=== PATIENT | female | born 1930 | race African-American/Black ===

== ENCOUNTER 2016-10-05 11:36 | Emergency (ER) | payer MEDICARE, MEDICAID ==
[2016-10-05] MEDS ORDERED: predniSONE 20 MG TAB ONE (12:14)
--- NOTE | 2016-10-05 16:13 | RAD ---
PORTABLE CHEST 10/05/16 An AP portable film at 1211 is compared with a 07/30/15 study. The heart is moderately enlarged as before. Arteriosclerotic change is seen in the aorta. There is p rominence of the vasculature suggesting mild congestive change. It is difficult to see the left lung base well in this patient. IMPRESSION: Mild congestive change. POS: HOME
== END 2016-10-05 12:55 | disposition home or self-care (01) ==
LOC: BURERS 11:36
DX: J06.9 Acute upper respiratory infection, unspecified (principal); I11.0 Hypertensive heart disease with heart failure; I50.9 Heart failure, unspecified; M19.90 Unspecified osteoarthritis, unspecified site; E11.9 Type 2 diabetes mellitus without complications; E78.00 Pure hypercholesterolemia, unspecified; E03.9 Hypothyroidism, unspecified; F03.90 Unspecified dementia, unspecified severity, without behavioral disturbance, psychotic disturbance, mood disturbance, and anxiety; J44.9 Chronic obstructive pulmonary disease, unspecified; E66.9 Obesity, unspecified; Z86.718 Personal history of other venous thrombosis and embolism; Z79.01 Long term (current) use of anticoagulants; Z79.899 Other long term (current) drug therapy; Z79.4 Long term (current) use of insulin
CPT/HCPCS: 71010; 93005; J7506; J7620

== ENCOUNTER 2017-09-17 19:23 | Observation (INO) | payer MEDICAID, MEDICARE ==
[2017-09-17 19:42] LABS: Hemoglobin 12.4 g/dL (12.0-16.0); Mean Corpuscular HGB CONC 34.3 g/dL (32.0-36.0); Mean Corpuscular Hemoglobin 28.8 pg (27.0-31.0); Mean Corpuscular Volume 84.1 fL (81.0-99.0); Platelet Count 242 thou/uL (130-400); RBC Distribution Width 12.5 % (11.5-14.5); Red Blood Cell (RBC) Count 4.32 mill/uL (4.20-5.40); White Blood Cell (WBC) Count 11.6 thou/uL (4.8-10.8)
[2017-09-17 19:43] LABS: #Basophils 0.1 thou/uL (0.0-0.2); #Eosinphils 0.6 thou/uL (0.0-0.7); #Monocytes 0.7 thou/uL (0.11-0.59); #Neutrophils 7.8 thou/uL (1.40-6.50); %Basophils 1.1 % (0.0-1.0); %Eosinophils 5.2 % (0.0-10.0); %Lymphocytes 20.3 % (21.0-51.0); %Monocytes 6.4 % (0.0-10.0); MDiff Complete? YES; Manual Diff?? YES; Mean Platelet Volume 10.3 fL (7.4-10.4)
[2017-09-17 19:44] LABS: #Lymphocytes 2.4 thou/uL (1.20-3.40)
[2017-09-17 20:03] LABS: ALT (SGPT) 39 U/L (8-55); AST (SGOT) 31 U/L (5-34); Albumin 3.7 g/dL (3.4-4.8); Alkaline Phosphatase 70 U/L (40-150); Anion Gap 15 mmol/L (10-20); BUN (Urea Nitrogen) 56 mg/dL (9.8-20.1); Bilirubin, Total 0.2 mg/dL (0.2-1.2); CK (CPK) 533 U/L (29-168); Calc. Creatinine Clearance 0 mL/min (70-130); Calcium 9.4 mg/dL (7.8-10.44); Carbon Dioxide 30 mmol/L (23-31); Chloride 99 mmol/L (98-107); Estimated GFR-MDRD 34; Globulin 3.5 g/dL (2.4-3.5); Glucose 94 mg/dL (83-110); Protein, Total 7.2 g/dL (6.0-8.3); Sodium 140 mmol/L (136-145)
[2017-09-17 20:04] LABS: CKMB 0.9 ng/mL (0-6.6)
--- NOTE | 2017-09-17 20:28 | CT ---
CT BRAIN WITHOUT CONTRAST: 09/17/2017 COMPARISON: 01/05/2015 FINDINGS: Moderate atrophy with mild compensatory dilatation of the ventricles is again noted. It has advanced slightly over the interval. There are no findings strongly suggestive of acute stroke, mass, edema, or bleeding. Ventricles show no shift. The bony structures are unremarkable. The visible paranasa l sinuses are clear. IMPRESSION: No acute intracranial findings. POS: HOME
[2017-09-17 20:50] LABS: Bilirubin Negative (Negative); Blood, Urine Negative (Negative); Clarity Clear (Clear); Glucose, Urine (Dipstick) Negative (Negative); Leukocyte Trace (Negative); Nitrite Negative (Negative); Protein, Urine (Dipstick) Negative (Neg-Trace); Urobilinogen 0.2 mg/dL (0.2-1.0); pH, Urine 5.5 (5.0-9.0)
[2017-09-17 20:58] LABS: Bacteria/HPF Rare-Few HPF (None Seen); RBC/HPF 0-3 HPF (0-3); Squamous Epithelial 0-3 HPF (0-3); Transitional Epithelial 0-3 HPF (0-3)
[2017-09-17] MEDS ORDERED: Ondansetron HCl/PF 4 MG/2 ML Vial IVP PRN (22:23)
[2017-09-17] MEDS ORDERED: Ondansetron ODT 4 MG TAB SL PRN (22:23)
[2017-09-17] MEDS ORDERED: Acetaminophen 325 MG TAB PO PRN (22:23)
--- NOTE | 2017-09-17 23:08 | RAD ---
AP PORTABLE CHEST: 09/17/2017 1948 HOURS COMPARISON: 10/05/2016 TECHNIQUE: The heart is enlarged but about the same as before. There is some mild congestion and edema present. Some haziness in the right base could either be edema or pneumonia. IMPRESSION: 1. Congestive heart failure. 2. Right basilar infiltrate. Edema versus pneumonia. CODE T POS: HOME
[2017-09-18] MEDS ORDERED: Losartan Potassium 50 MG TAB PO SCH (09:00)
[2017-09-18] MEDS ORDERED: DIFLUPREDNATE EA EYE SCH (09:00)
[2017-09-18] MEDS ORDERED: Multivitamin W/ Minerals 1 TAB PO SCH (09:00)
[2017-09-18] MEDS ORDERED: Prevnar 13-Val Conj/PF 0.5 ML SYRINGE IM ONE (09:00)
[2017-09-18] MEDS ORDERED: Calcium Carbonate + Vit D 1 TAB PO SCH (09:00)
[2017-09-18] MEDS ORDERED: cycloSPORINE 0.05% Ophthalmic Droperette EA EYE SCH (09:00)
[2017-09-18] MEDS ORDERED: MOMETASONE FUROATE TOP SCH (09:00)
[2017-09-18] MEDS ORDERED: Potassium Chloride 20 MEQ TAB PO SCH (09:00)
[2017-09-18] MEDS ORDERED: Docusate Calcium (SURFAK) 240 MG CAP PO SCH (09:00)
[2017-09-18] MEDS ORDERED: Non-Formulary Item 1 EACH (Budesonide-Formoterol [Symbicort 160-4.5] 2 PUFF) INH SCH (09:00)
[2017-09-18] MEDS ORDERED: Furosemide 40 MG TAB PO SCH (09:00)
[2017-09-18] MEDS ORDERED: Triamterene/Hydrochlorothiazide 37.5 mg/25 mg Tablet PO SCH (09:00)
[2017-09-18] MEDS ORDERED: Dextrose 50% Abboject 50 ML SYRINGE SLOW IVP PRN (11:31)
[2017-09-18] MEDS ORDERED: HumaLOG 300 UNITS/3 ML VIAL SC PRN ×3 (11:31→11:41)
[2017-09-18] MEDS ORDERED: Dextrose 5% in Water 1,000 ML IV PRN (11:31)
[2017-09-18 11:32] VITALS: BP 141/66; TEMP 98.5
[2017-09-18] MEDS ORDERED: Insulin Regular 300 UNITS/3 ML VIAL ONE (11:53)
[2017-09-18] MEDS ORDERED: Warfarin Sodium 7.5 MG TAB PO SCH (17:00)
[2017-09-18] MEDS ORDERED: Mometasone/Formoterol 60 PUFF AER INH SCH (19:00)
[2017-09-18] MEDS ORDERED: Donepezil HCl 10 MG TAB PO SCH (21:00)
[2017-09-18] MEDS ORDERED: Insulin Glargine 100 UNIT/ML 3 ML PEN SQ SCH (21:00)
[2017-09-18] MEDS ORDERED: Simvastatin 20 MG TAB PO SCH (21:00)
--- NOTE | 2017-09-19 03:40 | HP ---
PRIMARY CARE PHYSICIAN: Caitlin Ingram MD CHIEF COMPLAINT: Altered mental status, weakness, and hypoxia. HISTORY OF PRESENT ILLNESS: Ms. Ambriz is an 86-year-old -[place] female with diabetes mellitus with hyperglycemia; diastolic congestive heart failure; hypertension; chronic lung disease, on home oxygen; and dementia, who presented to emergency room complaining of sudden onset of weakness and confusion. According to her daughter, she has not been feeling well for few days and noticed that her blood glucose has been running high. She takes long acting night time, pre and post-prandial insulin. Yesterday afternoon, daughter brought the patient for a car ride when they got home, she felt anxious and requested for her anxiety pill. After a few hours, she felt anxious and took another dose along with other nighttime medications. While at the bathroom, daughter was assisting her to change to her night clothes. She got extremely weak on her legs; however, daughter was able to catch her, speech got altered, hence she was brought to the emergency room. Her initial vital signs showed blood pressure of 134/75, pulse of 54, respiratory rate of 16 , temperature of 97.8, O2 was 88% on room air and improved to 96% on 2 liters. LABORATORY AND X-RAY FINDINGS: Her labs showed a WBC of 11, lymphocytes of 20, neutrophils of 67. Her electrolytes were normal. BUN was elevated at 56, creatinine at 1.7, creatinine kinase was 533, CK-MB of 0.9, troponin of 0.10. Urine showed trace leukocyte esterase with 4 to [address] of the brain showed moderate atrophy with mild compensatory dilatation of the ventricles, no acute intracranial findings. Her chest x-ray demonstrated congestive heart failure, presence of right basilar infiltrate, edema versus pneumonia. Re-evaluation of the patient in the emergency room and noted that she was weak to get discharge and suggested for observation for altered mental status with hypoxia secondary excessive sedation from anxiolytics. Overnight, the patient slept well. This morning, she denied any complaints. She is oriented and more alert. She requested to go home, but agreed to stay until noon. Reviewed labs and imaging with her daughter, stated about the findings of possible pneumonia and congestive heart failure; however, she stated that she always have the same findings. Her vital signs throughout remained stable. Her oxygen was 99% at 2 liters. Prior to her discharge, blood glucose was elevated at 360 and she received moderate dose of Humalog. PAST MEDICAL HISTORY: 1. History of diastolic congestive heart failure. 2. Diabetes mellitus, uncontrolled. 3. Hypertension. 4. Hypothyroidism. 5. Hyperlipidemia. 6. Reactive airway disease with hypoxia on long-term oxygen use. 7. History of obstructive sleep ?on oxygen. 8. History of DVT, on Coumadin. PAST SURGICAL HISTORY: 1. Right total arthroplasty in 2005. 2. Lumbar laminectomy. 3. Cholecystectomy. 4. History of left heart catheterization in 2000. ALLERGIES: No known drug allergies. FAMILY HISTORY: Significant for coronary artery disease. The father from AL at the age of 70. Mother had AL in her 80s. Positive for colorectal cancer in mother and brother. Mother also had breast cancer. Sister has pancreatic cancer. SOCIAL HISTORY: The patient lives with a daughter. She denies tobacco or alcohol use. MEDICATION: 1. Levothyroxine 100 mcg daily. 2. Mometasone furoate one application daily. 3. Lovastatin 20 mg 1 tablet daily. 4. Atrovent nasal spray 2 sprays per nostril twice daily. 5. Nexium 40 mg daily. 6. Aricept 10 mg daily. 7. Symbicort 2 puff inhalation b.i.d. 8. Multivitamins 1 tablet daily. 9. Pataday 1 drop each eye daily as needed. 10. Losartan 100 mg daily. 11. DuoNeb 4 times daily as needed for cough and wheezing. 12. Triamterene with hydrochlorothiazide 37.5/25 mg 1 tablet daily. 13. Restasis 1 drop daily. 14. Novolin R subcutaneous twice daily using sliding scale. 15. K-Dur 20 mg q.a.m. 16. Coumadin 7.5 mg daily. 17. Calcium 240 mg daily. 18. Lantus 28 units at bedtime. 19. Lasix 40 mg daily. 20. Hydrocodone 7.5/325 mg 1 tablet every 6 hours p.r.n. for pain. 21. Lorazepam 0.5 mg t.i.d. p.r.n. for anxiety. REVIEW OF SYSTEMS: General: Positive for weakness. Negative for fever, negative for loss of appetite. HEENT: Negative for headaches. Positive for blurred vision. Negative for sore throat. Cardiovascular: Negative for chest pain. Negative for cyanosis. Respiratory: Positive for shortness of breath. Negative for cough. Gastrointestinal: Negative for nausea, vomiting, or diarrhea. Urology: Negative for hematuria. Negative for dysuria. Neurologic : Positive for weakness. Uses walker to ambulate. PHYSICAL EXAMINATION: VITAL SIGNS: Blood pressure of 167/73, temperature 98.7, pulse of 70, respiratory rate 20, O2 sat 99% at 2 liters per nasal cannula. GENERAL: Patient is alert, oriented x3, not in respiratory distress. HEENT: Normocephalic, atraumatic. Pupils equally reactive to light. NECK: Supple. Negative for lymphadenopathy. CHEST AND LUNGS: Symmetrical expansion. Clear to auscultation. HEART: Regular rate and rhythm. Negative for murmur, rubs, or gallops. ABDOMEN: Slightly distended, nontender, no masses. Negative for CVA tenderness. EXTREMITIES: Negative for cyanosis. Negative for edema. PSYCHIATRIC: Appropriate affect and demeanor. NEUROLOGIC: No focal deficits. LABORATORY: Reviewed. ASSESSMENT AND PLAN: Altered mental status with weakness and hypoxia secondary to adverse reaction from anxiolytic. The patient was admitted for observation. She is stable. She denies any complaints. All her medications were resumed. This morning, she is stable for discharge. Recommended to discontinue Ativan or decreased to lowest dose as tolerated. The patient's daughter will discuss with PCP, scheduled in the next 2-3 days. Advised daughter to monitor for any recurrence of symptoms, we will need emergency room for evaluation. DISCHARGE DISPOSITION: To home with Home health. CONDITION: Fair. DISCHARGE INSTRUCTIONS: Resume all medication. Advised to resume oxygen at home. The patient is high risk for falls. Advised to use walker at all times. MTDD
[2017-09-19] MEDS ORDERED: Levothyroxine Sodium 100 MCG TAB PO SCH (06:00)
== END 2017-09-18 14:19 | disposition home or self-care (01) ==
LOC: BURERS 19:23 → BURMED 21:12
PROVIDERS: ADMIT Family Medicine; ATTEND Family Medicine
DX: R41.82 Altered mental status, unspecified (principal); R53.1 Weakness; R09.02 Hypoxemia; T43.595A Adverse effect of other antipsychotics and neuroleptics, initial encounter; I11.0 Hypertensive heart disease with heart failure; I50.9 Heart failure, unspecified; E11.65 Type 2 diabetes mellitus with hyperglycemia; E03.9 Hypothyroidism, unspecified; E78.5 Hyperlipidemia, unspecified; J45.909 Unspecified asthma, uncomplicated; Z79.01 Long term (current) use of anticoagulants; Z79.899 Other long term (current) drug therapy
CPT/HCPCS: 36416; 51701; 70450; 71045; 80053; 81003; 81015; 82550; 82553; 84484; 85025; 93005; 94760; A4353; G0378; J1815

== ENCOUNTER 2018-03-08 10:21 | Emergency (ER) | payer MEDICARE, OTHER ==
[2018-03-08] MEDS ORDERED: HYDROcodone/Acetaminophen 5/325 mg Tablet ONE (10:54)
[2018-03-08] MEDS ORDERED: methylPREDNISolone Acetate 40 mg/ml Vial ONE (10:54)
== END 2018-03-08 11:23 | disposition home or self-care (01) ==
LOC: BURERS 10:21
DX: M25.562 Pain in left knee (principal); M19.90 Unspecified osteoarthritis, unspecified site; E78.00 Pure hypercholesterolemia, unspecified; E03.9 Hypothyroidism, unspecified; F03.90 Unspecified dementia, unspecified severity, without behavioral disturbance, psychotic disturbance, mood disturbance, and anxiety; J44.9 Chronic obstructive pulmonary disease, unspecified; E21.3 Hyperparathyroidism, unspecified; I13.0 Hypertensive heart and chronic kidney disease with heart failure and stage 1 through stage 4 chronic kidney disease, or unspecified chronic kidney disease; E11.22 Type 2 diabetes mellitus with diabetic chronic kidney disease; N18.3 Chronic kidney disease, stage 3 (moderate); E66.9 Obesity, unspecified; Z86.718 Personal history of other venous thrombosis and embolism
CPT/HCPCS: 96372; J1030

== ENCOUNTER 2018-03-11 02:55 | Emergency (ER) | payer MEDICARE, OTHER ==
[2018-03-11] MEDS ORDERED: Cefepime 1 GM VIAL ONE (03:49)
[2018-03-11] MEDS ORDERED: Furosemide 40 MG/4 ML VIAL ONE (03:49)
[2018-03-11 04:20] LABS: ALT (SGPT) 20 U/L (8-55); AST (SGOT) 25 U/L (5-34); Albumin 3.7 g/dL (3.4-4.8); Alkaline Phosphatase 72 U/L (40-150); Anion Gap 16 mmol/L (10-20); BUN (Urea Nitrogen) 30 mg/dL (9.8-20.1); Bilirubin, Total 0.4 mg/dL (0.2-1.2); Calc. Creatinine Clearance 0 mL/min (70-130); Calcium 9.1 mg/dL (7.8-10.44); Carbon Dioxide 28 mmol/L (23-31); Chloride 101 mmol/L (98-107); Estimated GFR-MDRD 31; Globulin 3.3 g/dL (2.4-3.5); Glucose 222 mg/dL (83-110); Potassium 4.4 mmol/L (3.5-5.1); Sodium 141 mmol/L (136-145)
[2018-03-11 04:20] LABS: Bilirubin Negative (Negative); Blood, Urine Small (Negative); Clarity Hazy (Clear); Glucose, Urine (Dipstick) Negative (Negative); Leukocyte Small (Negative); Nitrite Positive (Negative); Protein, Urine (Dipstick) Negative (Neg-Trace); Specific Gravity, Urine 1.015 (1.005-1.030); Urobilinogen 0.2 mg/dL (0.2-1.0)
[2018-03-11 04:21] LABS: Troponin I 0.028 ng/mL (< 0.028)
[2018-03-11 04:24] LABS: Bacteria/HPF 2+ HPF (None Seen); Squamous Epithelial 0-3 HPF (0-3); Yeast-All Forms Rare HPF (None Seen)
[2018-03-11] MEDS ORDERED: Acetaminophen 500 MG TAB ONE (04:24)
[2018-03-11 04:31] LABS: #Basophils 0.1 thou/uL (0.0-0.2); #Eosinphils 0.1 thou/uL (0.0-0.7); #Lymphocytes 1.1 thou/uL (1.20-3.40); #Monocytes 0.8 thou/uL (0.11-0.59); #Neutrophils 11.6 thou/uL (1.40-6.50); %Basophils 0.8 % (0.0-1.0); %Eosinophils 0.6 % (0.0-10.0); %Lymphocytes 8.3 % (21.0-51.0); %Neutrophils 84.3 % (42.0-75.0); Hemoglobin 11.5 g/dL (12.0-16.0); Mean Corpuscular HGB CONC 33.3 g/dL (32.0-36.0); Mean Corpuscular Hemoglobin 28.6 pg (27.0-31.0); Mean Corpuscular Volume 85.6 fL (78.0-98.0); Mean Platelet Volume 9.9 fL (7.4-10.4); Platelet Count 193 thou/uL (130-400); RBC Distribution Width 12.9 % (11.5-14.5); Red Blood Cell (RBC) Count 4.02 mill/uL (4.20-5.40); White Blood Cell (WBC) Count 13.8 thou/uL (4.8-10.8)
--- NOTE | 2018-03-11 07:32 | RAD ---
PORTABLE CHEST: Date: 03/11/18 Comparison is made with the 09/17/17 study. FINDINGS: There are bibasilar infiltrates. Given the location, I feel pneumonia is probably more likely than pu lmonary edema since the upper lobes seem relatively spared. There may be some pleural fluid on the le ft. The cardiac size is unchanged. Degenerative changes are seen in the shoulders. IMPRESSION: Bibasilar infiltrates. POS: HOME
--- NOTE | 2018-03-11 07:34 | RAD ---
LEFT SHOULDER 2 VIEWS: Date: 03/11/18 The humeral head is at least subluxed if not dislocated. It sits more inferiorly than it should. Ther e are degenerative changes in the glenohumeral joint, as well as the acromioclavicular joint. No acut e fracture seen. IMPRESSION: Subluxation or dislocation of the humeral head. Further views would be helpful. The humeral head is a t least sitting more inferiorly than normal. POS: HOME
--- NOTE | 2018-03-11 07:35 | RAD ---
LEFT KNEE 2 VIEWS: Date: 03/11/18 There is almost complete loss of the joint space, both medially and laterally. Osteophytes are presen t and large. The patellofemoral joint is involved with osteophytes. No fracture or joint effusion see n. IMPRESSION: Severe arthritic change. POS: HOME
== END 2018-03-11 05:50 | disposition short-term general hospital (02) ==
LOC: BURERS 02:55
DX: A41.9 Sepsis, unspecified organism (principal); R65.20 Severe sepsis without septic shock; E11.22 Type 2 diabetes mellitus with diabetic chronic kidney disease; I13.0 Hypertensive heart and chronic kidney disease with heart failure and stage 1 through stage 4 chronic kidney disease, or unspecified chronic kidney disease; N18.3 Chronic kidney disease, stage 3 (moderate); I50.9 Heart failure, unspecified; N39.0 Urinary tract infection, site not specified; J44.9 Chronic obstructive pulmonary disease, unspecified; Z79.899 Other long term (current) drug therapy
CPT/HCPCS: 71045; 80053; 81003; 81015; 83880; 84484; 85025; 87040; 87804; 93005; 94760; 96365; 96366; 96368; 96375; J0692; J1940; J3370

== ENCOUNTER 2018-07-11 15:11 | Observation (INO) | payer MEDICARE, MEDICAID ==
[2018-07-11 16:24] LABS: Prothrombin Time 22.4 SEC (12.0-14.7)
[2018-07-11 16:26] LABS: Bilirubin Negative (Negative); Blood, Urine Trace (Negative); Clarity Clear (Clear); Glucose, Urine (Dipstick) Negative (Negative); Leukocyte Negative (Negative); Nitrite Negative (Negative); Protein, Urine (Dipstick) Negative (Neg-Trace); Urobilinogen 0.2 mg/dL (0.2-1.0); pH, Urine 6.5 (5.0-9.0)
[2018-07-11 16:30] LABS: Bacteria/HPF None Seen HPF (None Seen); Crystals/HPF None Seen HPF (Negative); Hyaline Casts/LPF NONE SEEN LPF (0-3 Hyaline); Other Casts/LPF None Seen LPF (0-3 Hyaline); Oval Fat Bodies/HPF None Seen HPF (None Seen); RBC/HPF 0-3 HPF (0-3); Renal Epithelial None Seen HPF (0-3); Sperm/HPF None Seen HPF (None Seen); Squamous Epithelial 0-3 HPF (0-3); Transitional Epithelial NONE SEEN HPF (0-3); Trichomonas/HPF None Seen HPF (None Seen); WBC/HPF None Seen HPF (0-3); Yeast-All Forms None Seen HPF (None Seen)
[2018-07-11 16:30] LABS: ALT (SGPT) 28 U/L (8-55); AST (SGOT) 26 U/L (5-34); Albumin 3.6 g/dL (3.4-4.8); Alkaline Phosphatase 78 U/L (40-150); Anion Gap 14 mmol/L (10-20); BUN (Urea Nitrogen) 31 mg/dL (9.8-20.1); Bilirubin, Total Less than 0.2 mg/dL (0.2-1.2); Calc. Creatinine Clearance 0 mL/min (70-130); Calcium 9.4 mg/dL (7.8-10.44); Carbon Dioxide 31 mmol/L (23-31); Chloride 100 mmol/L (98-107); Estimated GFR-MDRD 35; Globulin 3.1 g/dL (2.4-3.5); Glucose 103 mg/dL (83-110); Potassium 4.3 mmol/L (3.5-5.1); Protein, Total 6.7 g/dL (6.0-8.3); Sodium 141 mmol/L (136-145)
[2018-07-11 16:34] LABS: Hemoglobin 11.1 g/dL (12.0-16.0); Large Platelets SLIGHT; Lymphocytes 23 % (21-51); MDiff Complete? YES; Mean Corpuscular HGB CONC 30.1 g/dL (32.0-36.0); Mean Corpuscular Hemoglobin 28.1 pg (27.0-31.0); Mean Corpuscular Volume 93.3 fL (78.0-98.0); Mean Platelet Volume 11.1 fL (7.4-10.4); Monocytes 11 % (0-10); Neutrophil 66 % (42-75); Platelet Count 226 thou/uL (130-400); RBC Distribution Width 13.7 % (11.5-14.5); Red Blood Cell (RBC) Count 3.95 mill/uL (4.20-5.40); White Blood Cell (WBC) Count 9.4 thou/uL (4.8-10.8)
--- NOTE | 2018-07-11 20:33 | RAD ---
PORTABLE CHEST 07/11/18 An AP portable film at 1547 is compared with a 03/11/18 study. There is a focal infiltrate in the righ t base. Pneumonia is presumed, though it is not unlike the prior study. Cardiomegaly is about the dayami e as before. It is difficult to assess the left base on this portable film. The vessels are not clear ly congested, but further films may be needed to follow this. IMPRESSION: 1. Cardiomegaly. 2. Right basilar infiltrate. POS: HOME
[2018-07-11] MEDS ORDERED: Lantus 1000 UNITS/10 ML VIAL SC SCH (23:00)
[2018-07-11] MEDS ORDERED: Primidone 50 MG TAB PO SCH (23:15)
[2018-07-12 05:20] LABS: #Basophils 0.1 thou/uL (0.0-0.2); #Eosinphils 0.3 thou/uL (0.0-0.7); #Lymphocytes 1.4 thou/uL (1.20-3.40); #Monocytes 0.5 thou/uL (0.11-0.59); #Neutrophils 5.2 thou/uL (1.40-6.50); %Basophils 1.7 % (0.0-1.0); %Eosinophils 3.4 % (0.0-10.0); %Lymphocytes 18.6 % (21.0-51.0); %Monocytes 7.1 % (0.0-10.0); %Neutrophils 69.3 % (42.0-75.0); Hemoglobin 11.2 g/dL (12.0-16.0); Mean Corpuscular HGB CONC 31.5 g/dL (32.0-36.0); Mean Corpuscular Hemoglobin 28.7 pg (27.0-31.0); Mean Corpuscular Volume 91.1 fL (78.0-98.0); Mean Platelet Volume 10.3 fL (7.4-10.4); Platelet Count 205 thou/uL (130-400); RBC Distribution Width 13.4 % (11.5-14.5); Red Blood Cell (RBC) Count 3.89 mill/uL (4.20-5.40); White Blood Cell (WBC) Count 7.5 thou/uL (4.8-10.8)
[2018-07-12] MEDS: HumaLOG 300 UNITS/3 ML VIAL SC SCH ×2 (07:30→08:36)
[2018-07-12] MEDS ORDERED: Diabetic Tussin 200 MG/10 ML UDCUP PO PRN (07:36)
[2018-07-12] MEDS ORDERED: traMADol HCl 50 MG TAB PO PRN (07:36)
[2018-07-12] MEDS ORDERED: Dextrose 50% Abboject 50 ML SYRINGE SLOW IVP PRN (07:51)
[2018-07-12] MEDS ORDERED: HumaLOG 300 UNITS/3 ML VIAL SC PRN (07:51)
[2018-07-12] MEDS ORDERED: Dextrose 5% in Water 1,000 ML IV PRN (07:51)
[2018-07-12] MEDS ORDERED: Loperamide HCl 2 MG CAP PO PRN ×2 (08:00)
[2018-07-12] MEDS: Difluprednate [Durezol] 1 DROP EA EYE SCH ×2 (08:47→13:24)
[2018-07-12] MEDS ORDERED: Potassium Chloride 20 MEQ TAB PO SCH (09:00)
[2018-07-12] MEDS ORDERED: Losartan Potassium 50 MG TAB PO SCH (09:00)
[2018-07-12] MEDS ORDERED: Spironolactone 25 MG TAB PO SCH (09:00)
[2018-07-12] MEDS ORDERED: IPRATROPIUM 0.06% EA NARE SCH (09:00)
[2018-07-12] MEDS ORDERED: Primidone 50 MG TAB PO SCH (09:00)
[2018-07-12] MEDS ORDERED: Non-Formulary Item 1 EACH (Fluticasone/Salmeterol [Advair Hfa 115/21 Inhaler] 2 INH) IH SCH (09:00)
[2018-07-12] MEDS ORDERED: Betamethasone 0.1% Cream 15 GM TUBE TOP SCH (09:00)
[2018-07-12] MEDS ORDERED: Multivitamin W/ Minerals 1 TAB PO SCH (09:00)
[2018-07-12] MEDS ORDERED: MOMETASONE FUROATE TP SCH (09:00)
[2018-07-12] MEDS ORDERED: Calcium Carbonate + Vit D 1 TAB PO SCH (09:00)
[2018-07-12] MEDS ORDERED: Furosemide 40 MG TAB PO SCH (09:00)
[2018-07-12] MEDS ORDERED: OLOPATADINE HCL EA EYE PRN (09:00)
[2018-07-12] MEDS ORDERED: cycloSPORINE 0.05% Ophthalmic Droperette EA EYE SCH (09:00)
[2018-07-12] MEDS ORDERED: Docusate Calcium (SURFAK) 240 MG CAP PO SCH (09:00)
[2018-07-12] MEDS ORDERED: Levothyroxine Sodium 100 MCG TAB PO SCH (09:00)
[2018-07-12] MEDS ORDERED: INHALE EA NARE SCH (09:00)
[2018-07-12 12:38] VITALS: BP 142/67; TEMP 98.4
[2018-07-12] MEDS ORDERED: HYDROcodone/Acetaminophen 7.5/325 mg Tablet PO SCH (14:00)
[2018-07-12] MEDS ORDERED: HumaLOG 300 UNITS/3 ML VIAL SC SCH (16:30)
[2018-07-12] MEDS ORDERED: Warfarin Sodium 7.5 MG TAB PO SCH (17:00)
[2018-07-12] MEDS ORDERED: Mometasone/Formoterol 60 PUFF AER INH SCH (19:00)
[2018-07-12] MEDS ORDERED: Donepezil HCl 10 MG TAB PO SCH (21:00)
[2018-07-13] MEDS ORDERED: Levothyroxine Sodium 25 MCG TAB PO SCH (06:00)
[2018-07-13] MEDS ORDERED: Levothyroxine Sodium 112 MCG TAB PO SCH (06:00)
--- NOTE | 2018-07-15 14:23 | SS ---
DATE OF ADMISSION: 07/11/2018 DATE OF DISCHARGE: 07/12/2018 REASON FOR ADMISSION: Recent diarrhea with guaiac-positive stools, concern for GI bleed. DISCHARGE DIAGNOSES: 1. Chronic recurrent diarrhea, stable. 2. Recent guaiac-positive stool with no signs of active gastrointestinal bleeding. BRIEF SUMMARY OF HISTORY AND PHYSICAL: The patient is an extremely pleasant, but chronically ill female, who presented to the emergency room with a report of chronic recurrent episodes of loose stools, but reports that on the day of presentation to the emergency room, she had more frequent loose stools than usual and she had 3 loose stools of diarrhea. No obvious melena nor hematochezia, but she felt overall malaise and weakness, and thus presented to the emergency room. Of note, the patient has caregivers that provide care for the patient 30/10. In the emergency room, her exam was significant for stool guaiac that was trace positive and there was a concern thus the patient may have active GI bleeding process. PAST MEDICAL HISTORY: 1. Diastolic congestive heart failure. 2. Diabetes mellitus. 3. Hypertension. 4. Hypothyroidism. 5. Hyperlipidemia. 6. Reactive airway disease with hypoxia, on long-term oxygen use. 7. History of obstructive sleep apnea with a CPAP device. 8. Hyperlipidemia. 9. History of lower extremity deep venous thrombosis, on chronic Coumadin use. PAST SURGICAL HISTORY: 1. Lumbar laminectomy. 2. Cholecystectomy. 3. Right total arthroplasty in 2005. ALLERGIES: NO KNOWN DRUG ALLERGIES. CURRENT MEDICATIONS: 1. The patient is on levothyroxine 100 mcg daily. 2. Lovastatin 20 mg daily. 3. The patient is on glipizide 5 mg b.i.d. 4. Triamterene/hydrochlorothiazide 37.5/25 mg daily. 5. The patient is on oxybutynin 5 mg daily. 6. Tramadol 50 mg p.o. q.8 hours p.r.n. pain. 7. Exelon 4.5 mg daily. 8. Lantus insulin 28 units subcu in the evening. 9. Zyrtec 10 mg daily. 10. Advair HFA 2 puffs q.6 hours p.r.n. 11. Coumadin 7.5 mg on Sunday, Sunday and Sunday, 11.25 mg on Sunday, , Sunday, and Sunday. 12. Primidone 50 mg b.i.d. 13. Lasix 40 mg daily. 14. Lorazepam 0.5 mg t.i.d. 15. Lovastatin 20 mg daily. 16. Exelon transdermal patch 4.6 mg to be applied every 24 hours. 17. Voltaren Gel topical for pain. FAMILY HISTORY: Significant for coronary artery disease. Father of an MA at age of 70. Mother had an MA in her 80s. There is a positive history of colorectal cancer in her mother and her brother. Mother had breast cancer and her sister had pancreatic cancer. SOCIAL HISTORY: The patient lives with her daughter, has a caregiver who cares for the patient during the day. The patient denies any tobacco, alcohol, or social drug use. She ambulates with a walker with standby assist. They will feed herself, but will require assistance with dressing. REVIEW OF SYSTEMS: The patient reports chronic recurrent episodes of loose stool as above. Primary care provider is Dr. Ingram and she has been followed for this condition for several years. The patient denies any depression. No recent URI-like symptoms nor cough. No chest pain. No shortness of breath above her baseline. She just reports some abdominal discomfort with her loose stools significant on the day of admission. The patient has chronic lower extremity edema, which is at the baseline. No new rashes nor lesions noted. The patient denies any change in her vision. PHYSICAL EXAMINATION: VITAL SIGNS: On admission, the patient had a normal vital signs with blood pressure of 148/68, respiratory rate was 22, and pulse was in the 80s. HEENT: Normocephalic. Extraocular movements were intact. Oropharynx was clear. NECK: Supple. CHEST: She had some rales at the bases bilaterally. HEART: Regular rate and rhythm. ABDOMEN: Obese, but soft. Nontender and nondistended. No masses are palpated. EXTREMITIES: Nonpitting 1 to 2+ edema of the lower extremities bilaterally. SKIN: No significant skin breakdown. HOSPITAL COURSE: The patient was admitted to observation in the emergency room due to her positive guaiac stools. On admission, her labs showed hemoglobin and hematocrit which were consistent with her baseline. Hemoglobin on admission was 11.1 and hematocrit that was also at its baseline of 36.9. The patient's electrolytes and BUN and creatinine were consistent within the normal baseline range for the patient. The patient was admitted to the floor. She was initially placed on a clear liquid diet. On the following morning, she had no significant diarrhea. No abdominal cramps or pain, and her diet was advanced to a diabetic diet. Her repeat hemoglobin and hematocrit showed no significant changes with a hemoglobin of 11.2 and her hematocrit of 35.4. The patient again had no melena. No hematochezia. No significant diarrhea and she was able to tolerate a regular diabetic diet. On abdominal exam, her abdomen was soft and nontender. No significant masses were palpated. Since the patient had no signs of active GI bleeding and had resolution of her abdominal discomfort and complaints, and was deemed appropriate to discharge the patient back to home on all her routine home medications. DISCHARGE MEDICATIONS: Include the patient's routine medications of: 1. Lovastatin 20 mg daily. 2. Levothyroxine 137 mcg daily. 3. Elocon cream applied to the topical area as indicated. 4. Atrovent nasal spray two sprays each nares twice daily. 5. Nexium 40 mg daily. 6. Aricept 10 mg daily. 7. Symbicort 160/4.5 two puffs b.i.d. 8. Pataday drops to the eyes as needed. 9. Cozaar 100 mg daily. 10. DuoNeb as needed. 11. Triamterene/hydrochlorothiazide 37.5/25 daily. 12. Restasis ophthalmic drops one drop each eye b.i.d. 13. Vitamin D with calcium daily. 14. Humulin insulin 18 units subcu at 1700 and 22 units in the morning. 15. Potassium chloride 20 mEq daily. 16. Coumadin 11.25 mg daily, except 7.5 mg on Sunday. 17. Surfak as needed for constipation. 18. Lantus SoloStar 28 units at bedtime. 19. Lasix 40 mg b.i.d. 20. [place] 7.5/325 p.o. q.8 hours p.r.n. pain. 21. Tramadol 50 mg p.o. q.8 hours p.r.n. mild pain. 22. Aldactone 25 mg daily. 23. Primidone 100 mg b.i.d. 24. Glipizide 5 mg before food twice a day. 25. Plendil 10 mg daily. 26. Tessalon Perles 100 mg q.8 hours p.r.n. cough. 27. Exelon patch 4.6 mg topically daily. 28. Namenda 10 mg p.o. b.i.d. FOLLOWUP: The patient's followup will be with Dr. Ingram, her primary care physician within 2 weeks. Her diet will be a baseline appetite diet of 2500 calories diabetic diet. ACTIVITY: Her activity will be as tolerated with a walker. DISCHARGE INSTRUCTIONS: She was instructed to return to the emergency room if she has recurrence of her symptoms or she can call her primary care provider. Job ID: [id number]
== END 2018-07-12 14:30 | disposition home or self-care (01) ==
LOC: BURERS 15:11 → BURMED 18:00
PROVIDERS: ADMIT Family Medicine; ATTEND Family Medicine
DX: K52.9 Noninfective gastroenteritis and colitis, unspecified (principal); R19.5 Other fecal abnormalities; E11.9 Type 2 diabetes mellitus without complications; E03.9 Hypothyroidism, unspecified; E78.5 Hyperlipidemia, unspecified; G47.33 Obstructive sleep apnea (adult) (pediatric); J45.909 Unspecified asthma, uncomplicated; R09.02 Hypoxemia; I11.0 Hypertensive heart disease with heart failure; I50.30 Unspecified diastolic (congestive) heart failure; Z86.718 Personal history of other venous thrombosis and embolism; Z80.0 Family history of malignant neoplasm of digestive organs; Z79.01 Long term (current) use of anticoagulants; Z79.4 Long term (current) use of insulin; Z79.899 Other long term (current) drug therapy; Z99.81 Dependence on supplemental oxygen; Z99.89 Dependence on other enabling machines and devices
CPT/HCPCS: 36415; 36416; 51701; 71045; 80053; 81003; 81015; 82274; 83605; 84484; 85025; 85610; 93005; 94760; A4353; G0378; J1815

== ENCOUNTER 2018-08-19 19:00 | Emergency (ER) | payer MEDICARE, OTHER ==
[2018-08-19 19:43] LABS: #Basophils 0.1 thou/uL (0.0-0.2); #Eosinphils 0.3 thou/uL (0.0-0.7); #Lymphocytes 1.3 thou/uL (1.20-3.40); #Monocytes 0.6 thou/uL (0.11-0.59); #Neutrophils 5.6 thou/uL (1.40-6.50); %Basophils 0.9 % (0.0-1.0); %Eosinophils 3.5 % (0.0-10.0); %Lymphocytes 16.4 % (21.0-51.0); %Monocytes 8.2 % (0.0-10.0); Hemoglobin 11.5 g/dL (12.0-16.0); Mean Corpuscular HGB CONC 31.9 g/dL (32.0-36.0); Mean Corpuscular Hemoglobin 28.6 pg (27.0-31.0); Mean Corpuscular Volume 89.5 fL (78.0-98.0); Mean Platelet Volume 9.5 fL (7.4-10.4); Platelet Count 231 thou/uL (130-400); RBC Distribution Width 13.2 % (11.5-14.5); Red Blood Cell (RBC) Count 4.03 mill/uL (4.20-5.40); White Blood Cell (WBC) Count 7.9 thou/uL (4.8-10.8)
[2018-08-19 19:59] LABS: ALT (SGPT) 24 U/L (8-55); AST (SGOT) 22 U/L (5-34); Albumin 3.7 g/dL (3.4-4.8); Alkaline Phosphatase 78 U/L (40-150); Anion Gap 14 mmol/L (10-20); BUN (Urea Nitrogen) 28 mg/dL (9.8-20.1); Bilirubin, Total 0.2 mg/dL (0.2-1.2); Calc. Creatinine Clearance 0 mL/min (70-130); Calcium 9.2 mg/dL (7.8-10.44); Carbon Dioxide 31 mmol/L (23-31); Chloride 99 mmol/L (98-107); Estimated GFR-MDRD 33; Globulin 3.2 g/dL (2.4-3.5); Glucose 71 mg/dL (83-110); Lipase 54 U/L (8-78); Protein, Total 6.9 g/dL (6.0-8.3); Sodium 140 mmol/L (136-145)
[2018-08-19] MEDS ORDERED: Hyoscyamine Sulfate SL 0.125 mg Tablet ONE (20:17)
[2018-08-19] MEDS ORDERED: HYDROcodone/Acetaminophen 5/325 mg Tablet ONE (20:36)
== END 2018-08-19 20:40 | disposition home or self-care (01) ==
LOC: BURERS 19:00
DX: R10.84 Generalized abdominal pain (principal); R19.7 Diarrhea, unspecified; M25.50 Pain in unspecified joint; E66.9 Obesity, unspecified; R60.0 Localized edema; M19.90 Unspecified osteoarthritis, unspecified site; I13.0 Hypertensive heart and chronic kidney disease with heart failure and stage 1 through stage 4 chronic kidney disease, or unspecified chronic kidney disease; E11.22 Type 2 diabetes mellitus with diabetic chronic kidney disease; N18.3 Chronic kidney disease, stage 3 (moderate); I50.9 Heart failure, unspecified; E03.9 Hypothyroidism, unspecified; F03.90 Unspecified dementia, unspecified severity, without behavioral disturbance, psychotic disturbance, mood disturbance, and anxiety; J44.9 Chronic obstructive pulmonary disease, unspecified; E78.00 Pure hypercholesterolemia, unspecified; E21.3 Hyperparathyroidism, unspecified; Z79.899 Other long term (current) drug therapy; Z86.718 Personal history of other venous thrombosis and embolism; Z79.4 Long term (current) use of insulin
CPT/HCPCS: 51701; 80053; 83690; 83880; 84484; 85025; 93005; 94760; A4353